=== PATIENT | female | born 1975 | race Caucasian/White ===

== ENCOUNTER 2023-03-16 08:12 | Emergency (ER) | payer OTHER ==
[~2023-03-16] VITALS: Ht 157.5 cm; Wt 59.1 kg
[2023-03-16] MEDS ORDERED: TRAZODONE HCL50 MG PO (08:23)
[2023-03-16 10:49] VITALS: BP 103/83
== END 2023-03-16 10:49 | disposition home or self-care (01) ==
LOC: ED 08:12
DX: N13.2 Hydronephrosis with renal and ureteral calculous obstruction (principal); Z79.899 Other long term (current) drug therapy
CPT/HCPCS: 36415; 76705; 80053; 81001; 83690; 84703; 85025; 96374; 96375; 99284 25; J1885; J2405; J7030